=== PATIENT | female | born 1935 | race Caucasian/White ===

== ENCOUNTER 2016-11-10 06:25 | Day surgery (SDC) | payer MEDICARE, BC ==
[~2016-11-10 06:25] MED LIST: Lactated Ringers 1,000 ML IV SCH; ceFAZolin 1 GM in Premix Bag 1 BAG IV SCH
[2016-11-10] MEDS ORDERED: Propofol 200 MG/20 ML SDV ONE (07:15)
[2016-11-10] MEDS ORDERED: Lidocaine 2% 5 ML SDV ONE (07:15)
[2016-11-10] MEDS ORDERED: fentaNYL 100 MCG/2 ML SDV ONE ×2 (07:16→08:41)
[2016-11-10] MEDS ORDERED: Midazolam 1 MG/ML 2 ML SDV ONE (07:16)
[2016-11-10] MEDS ORDERED: Ketorolac 30 MG/ML SDV ONE (07:22)
[2016-11-10] MEDS ORDERED: Ondansetron 4 MG/2 ML SDV ONE (07:22)
[2016-11-10] MEDS ORDERED: Lidocaine 1% 50 ML MDV ONE (07:26)
--- NOTE | 2016-11-10 07:46 | PCM.PREANE ---
Preanesthetic Assessment - Procedure Proposed Procedure: Right knee scope with TKA follow-up - Anesthesia/Transfusion/Family Hx Anesthesia History: Prior Anesthesia Without Reaction Family History of Anesthesia Reaction: No Transfusion History: No Prior Transfusion(s) Intubation History: Unknown - Review of Systems General: No Symptoms Pulmonary: No Symptoms Cardiovascular: No Symptoms Gastrointestinal: No symptoms Neurological: Other (pain in right toe, pain in right knee) - Physical Assessment NPO Status Date: 11/09/16 NPO Status Time: 20:00 O2 Sat by Pulse Oximetry: 95 Respiratory Rate: 16 Vital Signs: Last Vital Signs Temp 99.1 F 11/10/16 07:07 Pulse 60 11/10/16 07:07 Resp 16 11/10/16 07:07 BP 113/54 L 11/10/16 07:07 Pulse Ox 95 11/10/16 07:07 Height: 5 ft 2 in Weight: 157 lb ASA Class: 3 Mental Status: Alert & Oriented x3 Airway Class: Mallampati = 1 Dentition: Reports: Dentures (upper) Thyro-Mental Finger Breadths: 3 Mouth Opening Finger Breadths: 3 ROM/Head Extension: Full Lungs: Clear to auscultation, Normal respiratory effort Cardiovascular: Regular Rate, Regular Rhythm, No Murmurs - Allergies Allergies/Adverse Reactions: Allergies Allergy/AdvReac Type Severity Reaction Status Date / Time 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 Nausea Uncoded 07/09/16 10:34 - Blood Blood Available: No Product(s) Available: None - Acknowledgements Anesthesia Type Planned: General Anesthesia (LMA vs OET) Pt an Appropriate Candidate for the Planned Anesthesia: Yes Alternatives and Risks of Anesthesia Discussed w Pt/Guardian: Yes Pt/Guardian Understands and Agrees with Anesthesia Plan: Yes Additional Comments: New request for right toe (ingrown nail?)- bring to surgeon attention PreAnesthesia Questionnaire HEENT History: Reports: Other (See Below) Other HEENT History: wears glasses, has top denture and lower partial Cardiovascular History: Reports: Hypertension Gastrointestinal History: Reports: None 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 History: Reports: None 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: Musculoskeletal History: Reports: Back Pain, Chronic, Osteoarthritis Neurological History: Reports: Vertigo - Past Surgical History Head Surgeries/Procedures: Reports: None HEENT Surgical History: Reports: Naso-Sinus Surgery GI Surgical History: Reports: Hernia, Inguinal Female Surgical History: Reports: Hysterectomy, Salpingo-Oophorectomy, Tubal Ligation Musculoskeletal Surgical History: Reports: Hip Replacement, Knee Replacement - SUBSTANCE USE Smoking Status *Q: Never Smoker Second Hand Smoke Exposure: No Recreational Drug Use History: No - HOME MEDS Home Medications: Home Meds Krill/[place]-3/Dha/Epa/Lipids [Krill Oil 300 mg Softgel] 1 tab PO DAILY 07/08/16 [History] amLODIPine [Norvasc] 5 mg PO DAILY 07/08/16 [History] Meclizine [Antivert] 25 mg PO ASDIRECTED PRN 07/09/16 [History] Calcium Carbonate [Calcium] 500 mg PO DAILY 11/06/16 [History] Vit A/C/E AC/Znox/Cupric Oxide [Eye Vitamin-Minerals Tablet] 1 tab PO DAILY [History] Acetaminophen [Tylenol] 325 mg PO DAILY PRN 11/10/16 [History] Naproxen Sodium [Aleve] 220 mg PO DAILY 11/10/16 [History] - CURRENT (IN HOUSE) MEDS Current Meds: Current Medications Hydrocodone Bitart/Acetaminophen (Lorenzo 325-5 Mg) 1 - 2 tab PO Q4H PRN PRN Reason: Pain Lactated Ringer's (Ringers, Lactated) 1,000 mls @ 100 mls/hr IV ASDIRECTED [facility] Last Admin: 11/10/16 06:55 Dose: 100 mls/hr Cefazolin Sodium/Dextrose 1 gm (/ Premix) 50 mls @ 100 mls/hr IV ONCALL [facility] Discontinued Medications Fentanyl (Sublimaze) Confirm Administered Dose 100 mcg .ROUTE .STK-MED ONE Stop: 11/10/16 07:17 Cefazolin Sodium/Dextrose (Ancef) Confirm Administered Dose 50 mls @ as directed .ROUTE .STK-MED ONE Stop: 11/10/16 07:24 Ketorolac Tromethamine (Toradol) Confirm Administered Dose 30 mg .ROUTE .STK- MED ONE Stop: 11/10/16 07:23 Lidocaine (Xylocaine-Mpf 2%) Confirm Administered Dose 10 ml .ROUTE .STK-MED ONE Stop: 11/10/16 07:16 Lidocaine HCl (Xylocaine 1%) Confirm Administered Dose 50 ml .ROUTE .STK-MED ONE Stop: 11/10/16 07:27 Midazolam HCl (Versed 1 Mg/Ml) Confirm Administered Dose 2 mg .ROUTE .STK-MED ONE Stop: 11/10/16 07:17 Ondansetron HCl (Zofran) Confirm Administered Dose 4 mg .ROUTE .STK-MED ONE Stop: 11/10/16 07:23 Propofol (Diprivan 20 Ml) Confirm Administered Dose 400 mg .ROUTE .STK-MED ONE Stop: 11/10/16 07:16
[2016-11-10] MEDS ORDERED: Acetaminophen/HYDROcodone 325-5 MG Tab PO PRN (08:00)
[2016-11-10] MEDS ORDERED: ePHEDrine 50 MG/ML SDV ONE (08:33)
[2016-11-10] MEDS ORDERED: fentaNYL 100 MCG/2 ML SDV IVPUSH PRN (08:51)
--- NOTE | 2016-11-10 09:14 | PCM.OPNOTE ---
- General Post-Op/Procedure Note Date of Surgery/Procedure: 11/10/16 Operative Procedure(s): 1. R knee arthroscopy with limited synovectomy. 2. Avulsion of R 2nd toenail plate, partial, simple Post-Op Diagnosis: 1. painful R TKA. 2. R 2nd toe ingrown toenail Anesthesia Technique: General LMA Primary Surgeon: Abi Grey Care Trainer: Jennifer Jimenez EBL in mLs: 5 Condition: Good Free Text/Narrative:: tt=26 min #[id number]
[2016-11-10] MEDS: ceFAZolin 1 GM in Premix Bag 1 BAG IV SCH ×2 (11:20→15:38)
--- NOTE | 2016-11-10 12:11 | PCM.POSTAN ---
POST ANESTHESIA ASSESSMENT - MENTAL STATUS Mental Status: alert, oriented - RESPIRATORY Respiratory Status: respiratory rate WNL, airway patent, O2 saturation stable - CARDIOVASCULAR CV Status: pulse rate WNL, blood pressure stable - GASTROINTESTINAL GI Status: no symptoms - PAIN Pain Score: 3 - POST OP HYDRATION Hydration Status: adequate & stable - OBSERVATIONS Free Text/Narrative:: To phase II.
--- NOTE | 2016-11-10 14:13 | OR ---
SURGEON: Abi Grey MD DATE OF PROCEDURE: 11/10/2016 PREOPERATIVE DIAGNOSES: 1. Painful right total knee arthroplasty. 2. Right second toe ingrown toenail. POSTOPERATIVE DIAGNOSES: 1. Painful right total knee arthroplasty. 2. Right second toe ingrown toenail. PROCEDURE: 1. Right knee arthroscopy with limited synovectomy. 2. Avulsion of right second toenail plate, partial, simple. 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 ESTIMATED BLOOD LOSS: 5 mL. TOURNIQUET TIME: 26 minutes. COMPLICATIONS: None. DVT PROPHYLAXIS: Not indicated. IMPLANTS USED: None. BRIEF HISTORY: Becki is an 81-year-old female, who has previously undergone a right total knee arthroplasty. She continued to have pain and subsequently underwent a polyethylene exchange. She had been doing fairly well, however, has noticed some pain catching when she flexes and rotates her knee. She had failed conservative treatment. Due to her lack of response to conservative treatment, I did recommend surgical intervention. The risks and goals of the procedure were discussed with the patient and were documented preoperatively. She agreed to proceed. Upon presentation today, she has noticed an ingrown toenail over the second toe on the right. The toenail does appear thickened. There was no surrounding redness or drainage. I recommended a partial avulsion of the second toenail plate. She agreed to proceed. DESCRIPTION OF PROCEDURE: The patient was properly identified and brought to the operating room. She was transferred from the OR cart and placed on the operating table in supine position. General anesthesia was administered. After adequate anesthesia was obtained, a well-padded tourniquet was applied to the right lower extremity. A time-out was performed to ensure correct site and procedure. Preoperative antibiotics were given. The surgical site had been marked preoperatively. A [place] elevator was placed under the affected portion of the nail plate. This was gently elevated from the surrounding skin. There did not appear to be significant erythema and no drainage was noted. A rongeur was then used to perform a partial avulsion of the second toe nail plate. The thickened nail was also trimmed with a rongeur. At the completion, the toe was covered in a bandage. The right lower extremity was then prepped in standard fashion using Betadine solution. It was then sterilely draped. An Esmarch was used to exsanguinate the right lower extremity and the tourniquet was inflated to 250 mmHg. A lateral portal arthrotomy was established. Blunt trocar and cannula were introduced into the suprapatellar pouch. Camera, inflow, and outflow were assembled. The suprapatellar pouch showed no significant scar tissue. A medial portal was then established and a shaver was introduced. The patella femoral joint was then inspected. She did have some overgrowth of tissue surrounding the patella and this was resected using the shaver. The patella appeared to track centrally down the trochlear groove. I then extended down the medial gutter. There was some scar tissue that appeared to be impinging within the joint. This was removed with the shaver. The prosthesis and polyethylene were probed and appeared to be stable. The notch showed no significant synovitis. There was some scar tissue anteriorly at along the inferior portion of the patella which was also resected. She did have a considerable amount of scar tissue along the lateral gutter as well. The camera was changed to the medial portal and the shaver was introduced. Limited synovectomy was completed along the lateral gutter. The knee was then taken through a range of motion. I did not appreciate any clicking or catching sensation. I also tried rotating and flexing the leg and no appreciable clicking was noted. Instruments were then removed from the knee. The portal sites were closed with 3-0 nylon. Lidocaine 1% was injected along the portal tract. Xeroform gauze was placed over the wound and a bulky dressing was applied. The tourniquet was then deflated. She was awakened from her anesthetic and transferred back to the operating room cart. She was brought to recovery room in stable condition. All needle and sponge counts were correct. DIOGO / MODL /[id number]
[2016-11-10 18:05] VITALS: BP 111/53
== END 2016-11-10 17:40 | disposition home or self-care (01) ==
LOC: MW.SDS 06:25 → MW.MS 09:52 → MW.SDS 17:40
PROVIDERS: ATTEND Orthopaedic Surgery
DX: T84.84XA Pain due to internal orthopedic prosthetic devices, implants and grafts, initial encounter (principal); M67.261 Synovial hypertrophy, not elsewhere classified, right lower leg; L60.0 Ingrowing nail; Z79.899 Other long term (current) drug therapy; Z96.651 Presence of right artificial knee joint; I10 Essential (primary) hypertension; E78.1 Pure hyperglyceridemia; E78.00 Pure hypercholesterolemia, unspecified; Z98.890 Other specified postprocedural states; Z90.710 Acquired absence of both cervix and uterus; Z96.649 Presence of unspecified artificial hip joint; Z98.51 Tubal ligation status; Z91.09 Other allergy status, other than to drugs and biological substances
CPT/HCPCS: 11730; 29875; 88304; J0690; J1885; J2405; J3010; J7120; 01400; J2250; J2704

== ENCOUNTER 2017-10-06 10:18 | Day surgery (SDC) | payer MEDICARE, BC ==
[~2017-10-06 10:18] MED LIST changes: +Lidocaine 2% 5 ML SDV ONE; +Propofol 200 MG/20 ML SDV ONE; +Sodium Chloride 0.9% 10 ML Syringe FLUSH PRN; +Sodium Chloride 0.9% 2.5 ML Syringe FLUSH PRN; -ceFAZolin 1 GM in Premix Bag 1 BAG IV SCH; +fentaNYL 100 MCG/2 ML SDV ONE
--- NOTE | 2017-10-06 11:09 | PCM.PREANE ---
Preanesthetic Assessment - Anesthesia/Transfusion/Family Hx Anesthesia History: Prior Anesthesia Without Reaction Family History of Anesthesia Reaction: No Transfusion History: No Prior Transfusion(s) Intubation History: Unknown - Review of Systems General: No Symptoms Pulmonary: No Symptoms Cardiovascular: No Symptoms Neurological: No Symptoms Other: Reports: None - Physical Assessment NPO Status Date: 10/06/17 O2 Sat by Pulse Oximetry: 96 Respiratory Rate: 16 Vital Signs: Last Vital Signs Temp 37.0 C 10/06/17 10:42 Pulse 60 10/06/17 10:42 Resp 16 10/06/17 10:42 BP 166/71 H 10/06/17 10:42 Pulse Ox 96 10/06/17 10:42 Height: 1.57 m Weight: 70.76 kg ASA Class: 2 - Allergies Allergies/Adverse Reactions: Allergies Allergy/AdvReac Type Severity Reaction Status Date / Time 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 Nausea Uncoded 10/01/17 11:50 - Anesthesia Plan Pre-Op Medication Ordered: None (PMH: htn, hyperlipidemia) - Acknowledgements Anesthesia Type Planned: MAC Pt an Appropriate Candidate for the Planned Anesthesia: Yes Alternatives and Risks of Anesthesia Discussed w Pt/Guardian: Yes Pt/Guardian Understands and Agrees with Anesthesia Plan: Yes PreAnesthesia Questionnaire HEENT History: Reports: Other (See Below) Other HEENT History: wears glasses, has top denture and lower partial Cardiovascular History: Reports: Hypertension Gastrointestinal History: Reports: None 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 History: Reports: None 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: Musculoskeletal History: Reports: Back Pain, Chronic, Osteoarthritis Neurological History: Reports: Vertigo - Past Surgical History Head Surgeries/Procedures: Reports: None HEENT Surgical History: Reports: Naso-Sinus Surgery GI Surgical History: Reports: Hernia, Inguinal Female Surgical History: Reports: Hysterectomy, Salpingo-Oophorectomy, Tubal Ligation Musculoskeletal Surgical History: Reports: Hip Replacement, Knee Replacement - SUBSTANCE USE Smoking Status *Q: Never Smoker Second Hand Smoke Exposure: No Recreational Drug Use History: No - HOME MEDS Home Medications: Home Meds Krill/[place]-3/Dha/Epa/Lipids [Krill Oil 300 mg Softgel] 1 tab PO DAILY 07/08/16 [History] amLODIPine [Norvasc] 5 mg PO DAILY 07/08/16 [History] Calcium Carbonate [Calcium] 500 mg PO DAILY 11/06/16 [History] - CURRENT (IN HOUSE) MEDS Current Meds: Current Medications Lactated Ringer's (Ringers, Lactated) 1,000 mls @ 125 mls/hr IV ASDIRECTED [facility] Last Admin: 10/06/17 10:44 Dose: 125 mls/hr Sodium Chloride (Saline Flush) 10 ml FLUSH ASDIRECTED PRN PRN Reason: Keep Vein Open Sodium Chloride (Saline Flush) 2.5 ml FLUSH ASDIRECTED PRN PRN Reason: Keep Vein Open Sodium Chloride (Saline Flush) 10 ml FLUSH ASDIRECTED PRN PRN Reason: Keep Vein Open Sodium Chloride (Saline Flush) 2.5 ml FLUSH ASDIRECTED PRN PRN Reason: Keep Vein Open Discontinued Medications Fentanyl (Sublimaze) Confirm Administered Dose 100 mcg .ROUTE .STK-MED ONE Stop: 10/06/17 08:20 Lidocaine (Xylocaine-Mpf 2%) Confirm Administered Dose 5 ml .ROUTE .STK-MED ONE Stop: 10/06/17 08:20 Propofol (Diprivan 20 Ml) Confirm Administered Dose 400 mg .ROUTE .STK-MED ONE Stop: 10/06/17 08:20
[2017-10-06 13:39] VITALS: BP 142/79
--- NOTE | 2017-10-06 14:03 | PCM.OPNOTE ---
- General Post-Op/Procedure Note Date of Surgery/Procedure: 10/06/17 Operative Procedure(s): Incomplete colonoscopy Findings: Solid stool in colon. Tortuous sigmoid colon full of diverticuli. Pre Op Diagnosis: Diverticulosis, change in bowel habits Post-Op Diagnosis: Poor prep, diverticulosis Anesthesia Technique: MAC Primary Surgeon: Marcie Cleveland Condition: Good Free Text/Narrative:: Intake & Output 10/05/17 10/06/17 10/06/17 22:59 06:59 14:59 Intake Total 1000 Balance 1000
--- NOTE | 2017-10-06 14:10 | PCM.POSTAN ---
POST ANESTHESIA ASSESSMENT - MENTAL STATUS Mental Status: Alert, Oriented - RESPIRATORY Respiratory Status: Respiratory Rate WNL, Airway Patent, O2 Saturation Stable - CARDIOVASCULAR CV Status: Pulse Rate WNL, Blood Pressure Stable - GASTROINTESTINAL GI Status: No Symptoms - PAIN Free Text/Narrative:: uncomfortable from cramping. Poor prep, scheduled for additional laxitives and BE tomorrow. - POST OP HYDRATION Hydration Status: Adequate & Stable
--- NOTE | 2017-10-06 14:10 | PCM48HPAN ---
Post Anesthesia Note - EVALUATION WITHIN 48HRS OF ANESTHETIC Vital Signs in Normal Range: Yes Patient Participated in Evaluation: Yes Respiratory Function Stable: Yes Airway Patent: Yes Cardiovascular Function Stable: Yes Hydration Status Stable: Yes Pain Control Satisfactory: Yes Nausea and Vomiting Control Satisfactory: Yes Mental Status Recovered: Yes Resp Rate: 10
--- NOTE | 2017-10-07 13:56 | OR ---
SURGEON: SUDHAKAR HUTTON MD DATE OF PROCEDURE: 10/06/2017 PREOPERATIVE DIAGNOSIS: Change in bowel habits. POSTOPERATIVE DIAGNOSIS: Incomplete colonoscopy. PROCEDURE PERFORMED: Colonoscopy, incomplete. ANESTHESIA: MAC. INSTRUMENT USED: Olympus colonoscope. EXTENT OF EXAM: 20 cm into the colon preparation, poor with solid stool in the colon. LIMITATIONS: Tortuous sigmoid colon with multiple diverticula. COMPLICATIONS: None. INDICATIONS: The patient is an 82-year-old female, who came to my clinic complaining of increasing constipation since a knee replacement earlier this year. She has tried [id number] laxatives with mixed results. CT of the abdomen and pelvis was performed that showed mild thickening at the hepatic flexure, they may have been due to decompression. I explained to the patient that performing a diagnostic colonoscopy would be helpful in determining if this thickened area was secondary to the physiology of the colon or a mass. We discussed the procedure, expected perioperative course, and risks including bleeding, infection, or perforation. The patient verbalized understanding and wishes to proceed. PROCEDURE IN DETAIL: The patient was brought to the endoscopy suite and placed in the left lateral decubitus position. A time-out was completed verifying the patient's name, age, date of , allergies, and procedure to be performed. Monitored anesthesia care was induced and continuous oxygen was provided via nasal cannula throughout the procedure. After adequate sedation was achieved, a digital rectal exam was performed. Upon digital rectal exam, I could feel solid stool in the colon. A well lubricated colonoscope was inserted into the rectum. I immediately encountered chunks of solid stool. I irrigated the colon copiously and was able to clear out some of the stool. The scope was slowly advanced forward. The patient had a very tortuous sigmoid colon containing multiple diverticula. I attempted to advance the scope, but due to the poor prep and tortuosity of the colon, I could not safely advance the scope. I tried multiple position changes and large amount of irrigation of the colon, but was unsuccessful. The case was then canceled. The scope was then removed. The remainder of the colon appeared normal. The scope was retroflexed within the rectum and a photograph was taken of the anal canal. This appeared normal. The scope was removed. The patient was transferred to the PACU in stable condition. ENDOSCOPIC DIAGNOSIS: Incomplete colonoscopy. RECOMMENDATIONS: The patient will undergo a barium enema tomorrow. I will send her home with magnesium citrate to complete her colon prep. JESSICA / SHANNON /[id number]
== END 2017-10-06 15:30 | disposition home or self-care (01) ==
LOC: MW.SDS 10:18
PROVIDERS: ATTEND Surgery
DX: K59.09 Other constipation (principal); K57.30 Diverticulosis of large intestine without perforation or abscess without bleeding; K56.2 Volvulus; Z80.0 Family history of malignant neoplasm of digestive organs; I10 Essential (primary) hypertension; E78.00 Pure hypercholesterolemia, unspecified; E78.1 Pure hyperglyceridemia; Z79.899 Other long term (current) drug therapy; Z91.048 Other nonmedicinal substance allergy status
CPT/HCPCS: 45330; J3010; J7120; J2704

== ENCOUNTER 2018-10-20 09:32 | Emergency (ER) | payer MEDICARE, BC ==
[2018-10-20 09:37] VITALS: BP 145/68
--- NOTE | 2018-10-20 10:10 | EDM.PDOC ---
ED HPI GENERAL MEDICAL PROBLEM - General Chief Complaint: Lower Extremity Injury/Pain Stated Complaint: HIP PAIN Time Seen by Provider: 10/20/18 10:06 Source of Information: Reports: Patient History Limitations: Reports: No Limitations - History of Present Illness INITIAL COMMENTS - FREE TEXT/NARRATIVE: HISTORY AND PHYSICAL: History of present illness: Patient is an 83-year-old female who presents to the emergency room today with complaints of right hip pain and neck pain. She reports that she had a right total hip replacement on 09/28/18 at [facility] in [place]. She has been in [facility] for physical therapy and rehabilitation. She normally does live at home with her . She has been taking hydrocodone, Tylenol and gabapentin with somewhat relief. States this morning she woke up with increased pain that was not alleviated by her pain medication. Patient reports that her neck pain is chronic. Denies any numbness, tingling, or saddle paresthesia. She denies any falls, trauma or injury. Patient denies any fever, chills, headache, change in vision, syncope or near syncope. Denies any chest pain, back pain, shortness of breath or cough. Denies any abdominal pain, nausea, vomiting, diarrhea, constipation or dysuria. Has not noted any blood in urine or stool. Patient has been eating and drinking appropriately. Review of systems: As per history of present illness and below otherwise all systems reviewed and negative. Past medical history: As per history of present illness and as reviewed below otherwise noncontributory. Surgical history: As per history of present illness and as reviewed below otherwise noncontributory. Social history: See social history for further information Family history: As per history of present illness and as reviewed below otherwise noncontributory. Physical exam: General: Well-developed and well-nourished 83-year-old female. Alert and oriented. Nontoxic appearing and in no acute distress. HEENT: Atraumatic, normocephalic, pupils equal and reactive bilaterally, negative for conjunctival pallor or scleral icterus, mucous membranes moist, nontender, trachea midline. No drooling or trismus noted. No meningeal signs. No hot potato voice noted. Lungs: Clear to auscultation, breath sounds equal bilaterally, chest nontender. Heart: S1S2, regular rate and rhythm without overt murmur Abdomen: Soft, nondistended, nontender. Negative for masses or hepatosplenomegaly. Negative for costovertebral tenderness. Pelvis: Stable nontender. 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: Deferred. Rectal: Deferred. Skin: Lateral incision noted to right hip. Skin around it shows no sign of infection (erythema, soft tissue swelling or tenderness). Otherwise skin is intact, warm, dry. No lesions or rashes noted. Extremities: See skin. Atraumatic, moves all extremities per self without difficulty or deficits, negative for cords or calf pain. Strong pedal pulses bilaterally. Ambulates with standby assistance. Neurovascular unremarkable. Neuro: Awake, alert, oriented. Cranial nerves II through XII unremarkable. Cerebellum unremarkable. Motor and sensory unremarkable throughout. Exam nonfocal. Notes: Patient took Hydrocodone 7.5mg, Gabapentin, and Tylenol this morning around 0830. She does appear drowsy; but easily arousable. Post operative site appears free of infection. Patient was ambulatory with assistance to the bedside commode to void. Lab work is unremarkable at this time. CT shows extensive extraluminal, retroperitoneal gas. The etiology of this finding is indeterminate. Differential diagnosis includes perforation of a retroperitoneal portion of the colon or duodenum. Surgical consultation is advised. Gas is also present about the posterior mediastinum adjacent to the distal esophagus. If the patient has been vomiting recently, consider a single phase, water-soluble esophagram. No drainable fluid collection or obstruction. Normal caliber appendix. Distended gallbladder. Gallstones. No right upper quadrant inflammatory changes. 1215: Dr Rowe was consulted on this patient. He is here to evaluate patient. Requesting patient be transferred. 1220: Dr. Gabriel Lucero at [facility] was consulted on this patient. He is agreeable to accepting this patient. Family was made aware. Vital signs remain stable. IV Zosyn and Flagyl being given at this time. Diagnostics: CBC, CMP, UA, CT abd/pelvis Therapeutics: Toradol IM, Zosyn, Flagyl Impression: Colon perforation Right Hip Pain; post-operative Plan: To [facility] via ground EMS Definitive disposition and diagnosis as appropriate pending reevaluation and review of above. 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 Allergy Nausea Uncoded 10/20/18 09:37 Home Meds: Home Meds Acetaminophen [Tylenol Arthritis] 650 mg PO Q4H PRN 10/20/18 [History] Acetaminophen [Tylenol] 650 mg PO Q4H PRN 10/20/18 [History] Acetaminophen/HYDROcodone [[place] 325-7.5 MG] 1 tab PO Q4H PRN 10/20/18 [History] Bisacodyl [Dulcolax] 1 supp RECTAL DAILY PRN 10/20/18 [History] Bisacodyl [Dulcolax] 10 mg RC Q24H PRN 10/20/18 [History] Calcium Carbonate [Calcium] 500 mg PO DAILY 10/20/18 [History] Calcium Carbonate [Tums] 500 mg PO DAILY PRN 10/20/18 [History] Celecoxib [CeleBREX] 200 mg PO DAILY 10/20/18 [History] Celecoxib [CeleBREX] 200 mg PO DAILY 10/20/18 [History] Cyanocobalamin (Vitamin B-12) [B-12] 1,000 mcg PO DAILY 10/20/18 [History] Cyanocobalamin (Vitamin B-12) [B-12] 1,000 mcg PO DAILY 10/20/18 [History] Gabapentin [Neurontin] 200 mg PO BID 10/20/18 [History] Gabapentin [Neurontin] 200 mg PO BID 10/20/18 [History] Hydrocodone/Acetaminophen [Hydrocodon-Acetaminoph 7.5-325] 1 each PO Q4H PRN [History] Magnesium Hydroxide [Milk of Magnesia] 30 ml PO DAILY PRN 10/20/18 [History] Magnesium Hydroxide [Milk of Magnesia] 30 ml PO Q24H PRN 10/20/18 [History] Memantine HCl 5 mg PO DAILY 10/20/18 [History] Memantine HCl 5 mg PO DAILY 10/20/18 [History] Polyethylene Glycol 3350 [MiraLAX] 1 dose PO BEDTIME 10/20/18 [History] Polyethylene Glycol 3350 [MiraLAX] 17 gm PO BEDTIME PRN 10/20/18 [History] Prevagen Extra Strength 20 mg PO DAILY 10/20/18 [History] Past Medical History HEENT History: Reports: Other (See Below) Other HEENT History: wears glasses, has top denture and lower partial Cardiovascular History: Reports: Hypertension Gastrointestinal History: Reports: None, GERD 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 History: Reports: None 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: Musculoskeletal History: Reports: Back Pain, Chronic, Osteoarthritis Neurological History: Reports: Vertigo - Past Surgical History Head Surgeries/Procedures: Reports: None HEENT Surgical History: Reports: Naso-Sinus Surgery GI Surgical History: Reports: Hernia, Inguinal Female Surgical History: Reports: Hysterectomy, Salpingo-Oophorectomy, Tubal Ligation Musculoskeletal Surgical History: Reports: Hip Replacement, Knee Replacement Social & Family History - Family History Family Medical History: Unobtainable - Tobacco Use Smoking Status *Q: Never Smoker - Caffeine Use Caffeine Use: Reports: Coffee - Recreational Drug Use Recreational Drug Use: No Review of Systems - Review of Systems Review Of Systems: ROS reveals no pertinent complaints other than HPI. ED EXAM, GENERAL - Physical Exam Exam: See Below (See dictation) Course - Vital Signs Last Recorded V/S: Last Vital Signs Temp 97.4 F 10/20/18 09:33 Pulse 77 10/20/18 09:33 Resp 24 H 10/20/18 09:33 BP 145/68 H 10/20/18 09:33 Pulse Ox 97 10/20/18 09:33 - Orders/Labs/Meds Orders: Active Orders 24 hr Category Date Time Status Notify Provider Consults [RC] ASDIRECTED Care 10/20/18 12:19 Active Consult to Physician [CONS] Stat Cons 10/20/18 12:19 Active metroNIDAZOLE/Normal Saline [Flagyl 500 MG in NS 100 ML Med 10/20/18 12:16 Active ] 500 mg Premix Bag 1 bag IV ONETIME Medication Orders Metronidazole 500 mg/ Premix 100 mls @ 100 mls/hr IV ONETIME ONE Stop: 10/20/18 13:15 Labs: Laboratory Tests 10/20/18 10/20/18 10/20/18 Range/Units 10:48 10:48 11:17 WBC 5.83 (4.0-11.0) K/uL RBC 4.18 L (4.30-5.90) M/uL Hgb 12.4 (12.0-16.0) g/dL Hct 38.8 (36.0-46.0) % MCV 92.8 (80.0-98.0) fL MCH 29.7 (27.0-32.0) pg MCHC 32.0 (31.0-37.0) g/dL RDW Std Deviation 53.6 (28.0-62.0) fl RDW Coeff of Leonardo 16 H (11.0-15.0) % Plt Count 316 (150-400) K/uL MPV 9.70 (7.40-12.00) fL Neut % (Auto) 47.0 L (48.0-80.0) % Lymph % (Auto) 38.3 (16.0-40.0) % Aiken % (Auto) 10.1 (0.0-15.0) % Eos % (Auto) 3.6 (0.0-7.0) % Baso % (Auto) 1.0 (0.0-1.5) % Neut # (Auto) 2.7 (1.4-5.7) K/uL Lymph # (Auto) 2.2 (0.6-2.4) K/uL Aiken # (Auto) 0.6 (0.0-0.8) K/uL Eos # (Auto) 0.2 (0.0-0.7) K/uL Baso # (Auto) 0.1 (0.0-0.1) K/uL Nucleated RBC % 0.0 /100WBC Nucleated RBCs # 0 K/uL Sodium 142 (136-145) mmol/L Potassium 3.7 (3.5-5.1) mmol/L Chloride 108 H (98-107) mmol/L Carbon Dioxide 24.7 (21.0-32.0) mmol/L BUN 17 (7.0-18.0) mg/dL Creatinine 0.9 (0.6-1.0) mg/dL Est Cr Clr Drug Dosing 40.90 mL/min Estimated GFR (MDRD) 59.8 ml/min Glucose 94 (74-106) mg/dL Calcium 8.9 (8.5-10.1) mg/dL Total Bilirubin 0.4 (0.2-1.0) mg/dL AST 17 (15-37) IU/L ALT 16 (14-63) IU/L Alkaline Phosphatase 137 H (46-116) U/L Total Protein 6.0 L (6.4-8.2) g/dL Albumin 3.1 L (3.4-5.0) g/dL Globulin 2.9 (2.6-4.0) g/dL Albumin/Globulin Ratio 1.1 (0.9-1.6) Urine Color YELLOW Urine Appearance CLEAR Urine pH 5.5 (5.0-8.0) Ur Specific [place] <= 1.005 (1.001-1.035) Urine Protein NEGATIVE (NEGATIVE) mg/dL Urine Glucose (UA) NEGATIVE (NEGATIVE) mg/dL Urine Ketones NEGATIVE (NEGATIVE) mg/dL Urine Occult Blood NEGATIVE (NEGATIVE) Urine Nitrite NEGATIVE (NEGATIVE) Urine Bilirubin NEGATIVE (NEGATIVE) Urine Urobilinogen 0.2 (<2.0) EU/dL Ur Leukocyte Esterase NEGATIVE (NEGATIVE) Meds: Medications Generic Name Dose Route Start Last Admin Trade Name Freq PRN Reason Stop Dose Admin Metronidazole 500 mg/ Premix 100 mls @ 100 mls/hr 10/20/18 12:16 IV 10/20/18 13:15 ONETIME ONE Discontinued Medications Generic Name Dose Route Start Last Admin Trade Name Freq PRN Reason Stop Dose Admin Piperacillin Sod/Tazobactam 50 mls @ 100 mls/hr 10/20/18 12:16 10/20/18 12:43 Sod 3.375 gm/ Sodium Chloride IV 10/20/18 12:45 100 mls/hr ONETIME ONE Administration Ketorolac Tromethamine 60 mg 10/20/18 10:15 10/20/18 10:19 Toradol IM 10/20/18 10:16 60 mg ONETIME ONE Administration Departure - Departure Time of Disposition: 12:32 Disposition: DC/Tfer to Acute Hospital 02 Clinical Impression: Colon perforation, Acute postoperative pain of right hip - Discharge Information Referrals: Jose Watkins MD [Primary Care Provider] - Forms: ED Department Discharge - My Orders Last 24 Hours: My Active Orders 10/20/18 12:16 metroNIDAZOLE/Normal Saline [Flagyl 500 MG in NS 100 ML] 500 mg Premix Bag 1 bag IV ONETIME 10/20/18 12:19 Notify Provider Consults [RC] ASDIRECTED Consult to Physician [CONS] Stat - Assessment/Plan Last 24 Hours: My Active Orders 10/20/18 12:16 metroNIDAZOLE/Normal Saline [Flagyl 500 MG in NS 100 ML] 500 mg Premix Bag 1 bag IV ONETIME 10/20/18 12:19 Notify Provider Consults [RC] ASDIRECTED Consult to Physician [CONS] Stat
[2018-10-20] MEDS ORDERED: Ketorolac 60 MG/2 ML SDV IM ONE (10:15)
--- NOTE | 2018-10-20 12:13 | CT ---
INDICATION: PAIN HISTORY: Abdominal pain. COMPARISON: CT of the abdomen and pelvis 09/29/2017. TECHNIQUE: CT of the abdomen and pelvis. No intravenous contrast. Coronal/sagittal reconstruction images. FINDINGS: Lung bases: Coronary artery calcifications. No pleural or pericardial effusion. The lung bases demonstrate gas present within the posterior mediastinum adjacent to the distal esophagus. This is seen best on image 44 of series 201. No basilar pneumothorax. Abdomen/pelvis: The hepatic morphology is normal. There is a distended gallbladder, with gallstones. The gallbladder measures up to 9.7 cm in dimension. No solid hepatic mass. No perihepatic ascites. No adrenal mass. The spleen size is normal. There is no hydronephrosis. There are no perinephric inflammatory changes. There is no drainable perinephric fluid collection. There is no pancreatic mass or pancreatic duct dilation. No glandular atrophy. Bilateral hip arthroplasties. This creates streak artifact in the pelvis. There is diverticulosis of the colon, with gas present within the retroperitoneum. There is no drainable fluid collection. There is no pneumatosis. No abdominal aortic aneurysm. No adenopathy is seen by size criteria in the pelvis, gastrohepatic ligament, or small bowel mesentery. Gas is present throughout the retroperitoneal structures of the left upper quadrant, including the anterior para renal space. The bone windows demonstrate no suspicious lytic or blastic bone lesions. There are significant degenerative changes at the apophyseal joints in the lumbar spine. Minimal anterolisthesis of L4 on L5. IMPRESSION: 1. Extensive extraluminal, retroperitoneal gas. The etiology of this finding is indeterminate. Differential diagnosis includes perforation of a retroperitoneal portion of the colon or duodenum. Surgical consultation is advised. 2. Gas is also present about the posterior mediastinum adjacent to the distal esophagus. If the patient has been vomiting recently, consider a single phase, water-soluble esophagram. 3. No drainable fluid collection or obstruction. 4. Normal caliber appendix. 5. Distended gallbladder. Gallstones. No right upper quadrant inflammatory changes. 6. Report called to Dr. Higuera of the referring clinical service, 10/20/2018, 12:10 p.m. Dictated by Santosh Yi MD @ 10/20/2018 12:11:11 PM Please note that all CT scans at this facility use dose modulation, iterative reconstruction, and/or weight-based dosing when appropriate to reduce radiation dose to as low as reasonably achievable. Dictated by: Santosh Yi MD @ 10/20/2018 12:11:25 (Electronically Signed)
[2018-10-20] MEDS ORDERED: Piperacillin/Tazobactam 3.375 GM in Sodium Chloride 0.9% 50 ML IV ONE (12:16)
[2018-10-20] MEDS ORDERED: metroNIDAZOLE/Normal Saline 500 MG in Premix Bag 1 BAG IV ONE (12:16)
--- NOTE | 2018-10-20 16:33 | PCM.SN ---
- Free Text/Narrative Note: pt seen, chart reviewed; cx dictated; [id number]
--- NOTE | 2018-10-21 09:32 | CONS ---
DATE OF CONSULTATION: 10/20/2018 DATE OF : 1935 PRIMARY CARE PHYSICIAN: Jose Watkins M.D. Consult from Anshul Higuera NP, emergency room provider. CONCERNING QUESTION: Free air in the abdomen. HISTORY OF PRESENT ILLNESS: The patient is 83 years old lady and is about 3 weeks from total hip replacement at the [facility] in [place]. Postop, the patient is doing physical therapy in [facility] at [facility] and noted to have increased pain, not relieved by pain medication, and then sought help in the emergency room. An emergency room CAT scan shows free air and also mediastinum air, and Surgery was then consulted. Currently, the patient is resting on a stretcher and does not seem to show a lot of interest in communication. Eyes closed, resting. Occasionally opened eyes and gave answer to the doctor. The patient does not seem to be hurting a lot, but at the same time, she is really not interested to talk. Many family members are around bedside. She is not able to give any more history about why she is in the hospital, less about why she is doing physical therapy in [facility]. She knows she is in the hospital, but she does not understand why. She denied pain for the time-being. She said her appetite is pretty good and has absolutely no idea when she started to experience pain. At some point, she denied having any abdominal pain. PAST MEDICAL HISTORY: Significant for essential hypertension, bladder spasm, coccydynia, foot pain, low back pain, and knee pain. PAST SURGICAL HISTORY: Total knee replacement on the right side and recently total hip 3 weeks ago. Denied alcohol use. ALLERGIES: Please refer to nursing for details. MEDICATIONS: Please refer to nursing for details. FAMILY HISTORY: Noncontributory. SOCIAL HISTORY: As dictated above. PHYSICAL EXAMINATION: GENERAL: Very frail, elderly, cachectic appearance, and resting on the stretcher. Occasionally gives answer, but has absolutely no idea why she is in the hospital and how long she has not been feeling well. HEENT: Normocephalic and atraumatic. Sclerae are anicteric. LUNGS: With rales. With bilateral breath sounds. No subcu crepitus. Trachea is midline. HEART: Regular rate and rhythm. ABDOMEN: Soft and nondistended. No pulsating tender midline abdominal structure. Regular bowel sounds in all 4 quadrants. Exquisite tenderness in the epigastrium, even slight palpation causes her pain. No surgical scar in the abdomen. VITAL SIGNS: On examination, temperature 97, heart rate is 77, blood pressure is 145/98, respiratory rate is 24, and oxygen at 97%. LABORATORY VALUE: Upon consultation, white count is 5,800, and H and H are 12 and 39, platelets are 316,000. Coag is 0.98. Sodium 142, potassium 3.7, BUN is 17, creatinine is 0.9, total bilirubin is 0.4. AST and ALT are 17 and 16. Alkaline phosphatase is 137. Urine has no signs or symptoms of UTI. CAT scan reports extensive, extraluminal, retroperitoneal gas, etiology unknown, possible perforation of the retroperitoneal portion of colon or duodenum. Also, gas on posterior mediastinum adjacent to distal esophagus, distended gallbladder, gallstones. IMPRESSION: Perforated viscus with inflammation and fuzziness around the distal esophagus and free air, likely either perforated duodenum or perforated esophagus. With the patient's comorbidity at age 83, the patient would need to be transferred to a tertiary care center or academic center, and also the perforated area in gastroduodenal area, if perforation is located, also makes surgery to be a bigger case in critical care facility, as we are, and transfer to higher facility would be in the best interest of the patient. Plan has been recommended to the ER provider and talked to the family. All are in agreement. Transferred to [facility] in [place]. As always, thank you for the kind referral. TOD / SHANNON /[id number]
== END 2018-10-20 14:25 ==
LOC: MW.ED 09:32
DX: G89.18 Other acute postprocedural pain (principal); M25.551 Pain in right hip; K63.1 Perforation of intestine (nontraumatic); Z79.899 Other long term (current) drug therapy; Z96.641 Presence of right artificial hip joint
CPT/HCPCS: 36415; 74176; 80053; 81003; 85025; 96365; 96367; 96372; 99285; A4217; J1885; J2543; J3490; J7050

== ENCOUNTER 2019-01-18 14:01 | Observation (INO) | payer MEDICARE, BC ==
[2019-01-18] MEDS ORDERED: Sodium Chloride 0.9% 1,000 ML IV ONE (14:11)
[2019-01-18] MEDS ORDERED: Ketorolac 30 MG/ML SDV IVPUSH ONE (14:54)
[2019-01-18 14:57] LABS: CHLORIDE,CL 106 mmol/L (98-107); SODIUM,NA 141 mmol/L (136-145)
--- NOTE | 2019-01-18 15:12 | EDM.PDOC ---
ED HPI GENERAL MEDICAL PROBLEM - General Chief Complaint: Gastrointestinal Problem Stated Complaint: WEAKNESS Time Seen by Provider: 01/18/19 14:26 Source of Information: Reports: Patient History Limitations: Reports: No Limitations - History of Present Illness INITIAL COMMENTS - FREE TEXT/NARRATIVE: HISTORY AND PHYSICAL: History of present illness: Patient is an 83-year-old female who presents to the emergency room today with complaints of dizziness and headache. Patient had taken a nap earlier this afternoon in a recliner. When she woke up she put the feet the recliner down and sat up and became very dizzy. States she had the sensation of near syncope. She currently complains of dizziness and generalized headache associated with nausea. Patient denies any fever, chills, change in vision, syncope or recent head injury/trauma. Denies any chest pain, back pain, shortness of breath or cough. Denies any abdominal pain, vomiting, diarrhea, constipation or dysuria. Has not noted any blood in urine or stool. Patient has been eating and drinking appropriately. Review of systems: As per history of present illness and below otherwise all systems reviewed and negative. Past medical history: As per history of present illness and as reviewed below otherwise noncontributory. Surgical history: As per history of present illness and as reviewed below otherwise noncontributory. Social history: See social history for further information Family history: As per history of present illness and as reviewed below otherwise noncontributory. Physical exam: General: Well-developed and well-nourished 83-year-old female. Alert and oriented. Nontoxic appearing and in no acute distress. HEENT: Atraumatic, normocephalic, pupils equal and reactive bilaterally, negative for conjunctival pallor or scleral icterus, mucous membranes moist, TMs normal bilaterally, throat clear, neck supple, nontender, trachea midline. No drooling or trismus noted. No meningeal signs. No hot potato voice noted. Lungs: Clear to auscultation, breath sounds equal bilaterally, chest nontender. Heart: S1S2, regular rate and rhythm without overt murmur Abdomen: Soft, nondistended, nontender. Negative for masses or hepatosplenomegaly. Negative for costovertebral tenderness. Pelvis: Stable nontender. 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: Deferred. Rectal: Deferred. Skin: Intact, warm, dry. No lesions or rashes noted. Extremities: Atraumatic, moves all extremities per self without difficulty or deficits, negative for cords or calf pain. Neurovascular unremarkable. Neuro: Awake, alert, oriented. Cranial nerves II through XII unremarkable. Cerebellum unremarkable. Motor and sensory unremarkable throughout. Exam nonfocal. Notes: Lab work is unremarkable. No evidence of an acute intracranial hemorrhage, mass effect or loss of andujar-white differentiation. A small right periventricular white matter hypodensity could be related to mild chronic small vessel ischemic change. Patient has no deficits. This information was shared with the hospitalist, Dr Randhawa. We'll keep the patient for observation admission with telemetry patient is aware and agreeable to plan of care. Diagnostics: CBC, CMP, UA, Troponin, EKG, Head CT Therapeutics: IV fluids, Toradol Impression: Near Syncope Dizziness Headache Plan: Observation admission to Med/Surg Definitive disposition and diagnosis as appropriate pending reevaluation and review of above. 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 Uncoded 10/20/18 09:37 Home Meds: Home Meds Aspirin 81 mg PO DAILY 01/18/19 [History] Calcium Carbonate [Calcium] 500 mg PO DAILY 01/18/19 [History] Cyanocobalamin (Vitamin B-12) [B-12] 1,000 mcg PO ASDIRECTED 01/18/19 [History] Hydrocodone/Acetaminophen [Hydrocodon-Acetaminoph 7.5-325] 1 each PO DAILY 01/18 [History] Krill Oil 350 mg PO ASDIRECTED 01/18/19 [History] Krill/[place]-3/Dha/Epa/Lipids [Krill Oil 300 mg Softgel] 1 tab PO ASDIRECTED [History] Memantine HCl [Namenda] 5 mg PO DAILY 01/18/19 [History] amLODIPine [Norvasc] 5 mg PO DAILY 01/18/19 [History] Past Medical History HEENT History: Reports: Other (See Below) Other HEENT History: wears glasses, has top denture and lower partial Cardiovascular History: Reports: Hypertension Gastrointestinal History: Reports: GERD 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 History: Reports: None 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: Musculoskeletal History: Reports: Arthritis, Back Pain, Chronic, Osteoarthritis Neurological History: Reports: Vertigo - Infectious Disease History Infectious Disease History: Reports: None - Past Surgical History Head Surgeries/Procedures: Reports: None HEENT Surgical History: Reports: Naso-Sinus Surgery GI Surgical History: Reports: Hernia, Inguinal Female Surgical History: Reports: Hysterectomy, Salpingo-Oophorectomy, Tubal Ligation Musculoskeletal Surgical History: Reports: Hip Replacement, Knee Replacement Social & Family History - Family History Family Medical History: Unobtainable - Tobacco Use Smoking Status *Q: Never Smoker - Caffeine Use Caffeine Use: Reports: Coffee - Recreational Drug Use Recreational Drug Use: No ED ROS GENERAL - Review of Systems Review Of Systems: ROS reveals no pertinent complaints other than HPI. ED EXAM, GENERAL - Physical Exam Exam: See Below (See dictation) Course - Vital Signs Last Recorded V/S: Last Vital Signs Temp 97.0 F 01/18/19 14:02 Pulse 69 01/18/19 15:15 Resp 12 01/18/19 15:15 BP 143/47 H 01/18/19 15:15 Pulse Ox 96 01/18/19 15:15 Orthostatic Blood Pressure [ 151/74 Standing] Orthostatic Blood Pressure [ 138/76 Sitting] Orthostatic Blood Pressure [ 153/64 Supine] - Orders/Labs/Meds Orders: Active Orders 24 hr Category Date Time Status Admission Status [Patient Status] [ADT] Stat ADT 01/18/19 15:50 Active EKG Documentation Completion [RC] STAT Care 01/18/19 14:11 Active Orthostatic Vital Signs [RC] ASDIRECTED Care 01/18/19 14:11 Active Sodium Chloride 0.9% [Normal Saline] 1,000 ml Med 01/18/19 14:11 Active IV STAT Medication Orders Sodium Chloride (Normal Saline) 1,000 mls @ 125 mls/hr IV STAT ONE Stop: 01/18/19 22:10 Last Admin: 01/18/19 14:22 Dose: 125 mls/hr Labs: Laboratory Tests 01/18/19 01/18/19 01/18/19 Range/Units 14:00 14:00 14:10 WBC 8.11 (4.0-11.0) K/uL RBC 4.68 (4.30-5.90) M/uL Hgb 14.5 (12.0-16.0) g/dL Hct 43.4 (36.0-46.0) % MCV 92.7 (80.0-98.0) fL MCH 31.0 (27.0-32.0) pg MCHC 33.4 (31.0-37.0) g/dL RDW Std Deviation 46.0 (28.0-62.0) fl RDW Coeff of Leonardo 14 (11.0-15.0) % Plt Count 204 (150-400) K/uL MPV 10.70 (7.40-12.00) fL Neut % (Auto) 73.3 (48.0-80.0) % Lymph % (Auto) 19.4 (16.0-40.0) % [place] % (Auto) 6.2 (0.0-15.0) % Eos % (Auto) 0.7 (0.0-7.0) % Baso % (Auto) 0.4 (0.0-1.5) % Neut # (Auto) 6.0 H (1.4-5.7) K/uL Lymph # (Auto) 1.6 (0.6-2.4) K/uL [place] # (Auto) 0.5 (0.0-0.8) K/uL Eos # (Auto) 0.1 (0.0-0.7) K/uL Baso # (Auto) 0.0 (0.0-0.1) K/uL Nucleated RBC % 0.0 /100WBC Nucleated RBCs # 0 K/uL Sodium 141 (136-145) mmol/L Potassium 3.9 (3.5-5.1) mmol/L Chloride 106 (98-107) mmol/L Carbon Dioxide 23.4 (21.0-32.0) mmol/L BUN 12 (7.0-18.0) mg/dL Creatinine 0.8 (0.6-1.0) mg/dL Est Cr Clr Drug Dosing 47.95 mL/min Estimated GFR (MDRD) > 60.0 ml/min Glucose 131 H (74-106) mg/dL Calcium 9.4 (8.5-10.1) mg/dL Total Bilirubin 0.6 (0.2-1.0) mg/dL AST 22 (15-37) IU/L ALT 15 (14-63) IU/L Alkaline Phosphatase 105 (46-116) U/L Troponin I < 0.050 (0.000-0.056) ng/mL Total Protein 6.4 (6.4-8.2) g/dL Albumin 3.7 (3.4-5.0) g/dL Globulin 2.7 (2.6-4.0) g/dL Albumin/Globulin Ratio 1.4 (0.9-1.6) Urine Color YELLOW Urine Appearance CLEAR Urine pH 8.0 (5.0-8.0) Ur Specific [place] 1.020 (1.001-1.035) Urine Protein NEGATIVE (NEGATIVE) mg/dL Urine Glucose (UA) NEGATIVE (NEGATIVE) mg/dL Urine Ketones 40 H (NEGATIVE) mg/dL Urine Occult Blood NEGATIVE (NEGATIVE) Urine Nitrite NEGATIVE (NEGATIVE) Urine Bilirubin NEGATIVE (NEGATIVE) Urine Urobilinogen 0.2 (<2.0) EU/dL Ur Leukocyte Esterase NEGATIVE (NEGATIVE) Meds: Medications Generic Name Dose Route Start Last Admin Trade Name Freq PRN Reason Stop Dose Admin Sodium Chloride 1,000 mls @ 125 mls/hr 01/18/19 14:11 01/18/19 14:22 Normal Saline IV 01/18/19 22:10 125 mls/hr STAT ONE Administration Discontinued Medications Generic Name Dose Route Start Last Admin Trade Name Freq PRN Reason Stop Dose Admin Ketorolac Tromethamine 30 mg 01/18/19 14:54 01/18/19 15:12 Toradol IVPUSH 01/18/19 14:55 30 mg ONETIME ONE Administration Departure - Departure Time of Disposition: 16:15 Disposition: Refer to Observation Clinical Impression: Near syncope, Dizziness Headache Qualifiers: Headache type: unspecified Headache chronicity pattern: acute headache Intractability: not intractable Qualified Code(s): R51 - Headache - Discharge Information Referrals: PCP,Unknown [Primary Care Provider] - Forms: ED Department Discharge - My Orders Last 24 Hours: My Active Orders 01/18/19 14:11 EKG Documentation Completion [RC] STAT Orthostatic Vital Signs [RC] ASDIRECTED Sodium Chloride 0.9% [Normal Saline] 1,000 ml IV STAT 01/18/19 15:50 Admission Status [Patient Status] [ADT] Stat - Assessment/Plan Last 24 Hours: My Active Orders 01/18/19 14:11 EKG Documentation Completion [RC] STAT Orthostatic Vital Signs [RC] ASDIRECTED Sodium Chloride 0.9% [Normal Saline] 1,000 ml IV STAT 01/18/19 15:50 Admission Status [Patient Status] [ADT] Stat
--- NOTE | 2019-01-18 15:44 | CT ---
INDICATION: Near syncope. Dizziness. Weakness TECHNIQUE: CT head without contrast. COMPARISON: None available FINDINGS: There is mild age-related cortical atrophy. The ventricles are within normal limits for the patient`s age. There is no mass effect or midline shift. There is no loss of andujar-white differentiation. A small periventricular white matter hypodensity in the left griffin radiata is of unclear chronicity. There is no evidence of an acute intracranial hemorrhage. No acute calvarial fracture is seen. The visualized paranasal sinuses and mastoid air cells are clear. The visualized orbits are within normal limits. IMPRESSION: No evidence of an acute intracranial hemorrhage, mass effect or loss of andujar-white differentiation. A small right periventricular white matter hypodensity could be related to mild chronic small vessel ischemic change, however, if there is clinical concern for an evolving lacunar infarct, follow-up and consider MRI evaluation. Dictated by Kvng Coleman MD @ 01/18/2019 3:38:26 PM Please note that all CT scans at this facility use dose modulation, iterative reconstruction, and/or weight-based dosing when appropriate to reduce radiation dose to as low as reasonably achievable. Dictated by: Kvng Coleman MD @ 01/18/2019 15:38:37 (Electronically Signed)
--- NOTE | 2019-01-18 17:33 | PCM.HP.2 ---
H&P History of Present Illness - General Date of Service: 01/18/19 Admit Problem/Dx: Admission Diagnosis/Problem Admission Diagnosis/Problem Near syncope Patient is a 83-year-old female presenting today with a dizziness accompanied with nausea. Patient states taking a 30 minute nap while sitting upright in her chair after which she woke up without standing up and noticed a "room spinning" sensation.patient denies any fevers, chills, body aches, chest pain, fainting or near fainting; does mention having similar episodes in the past however it has never had nausea accompanied with her dizziness. In the past while having dizziness episodes; patient would just "sleep it off";however on her way to the bedroom patient became increasingly dizzy and had vomited 2-3 times; vomit was nonbilious. Of note patient does mention having only eaten half a peach and 1 cup of coffee today. Denies any preceding symptoms including fever, chills, bodyaches,, recent head trauma, recent ear infection. She does mention that when she woke up from her chair she was not wearing her glasses. After daughter noticed her feeling dizzy recommended proceeding to the emergency department. ED course: on arrival patient became increasingly dizzy during orthostatic vital testing. Otherwise states that her symptoms of nausea and dizziness had improved substantially while laying still in bed. Denies any chest pain, shortness of breath, confusion, changes in mentation. She recently had right hip surgery however has not been on any pain medication including gabapentin and hydrocodone for 1 month. Patient has not used any new [id number] medication and cannot recall any dose adjustments to her daily medication. Past medical history includes dementia, hypertension. 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 Allergy Headache Uncoded 01/18/19 17:57 Home Medications: Home Meds Aspirin 81 mg PO DAILY 01/18/19 [History] Calcium Carbonate [Calcium] 500 mg PO DAILY 01/18/19 [History] Cyanocobalamin (Vitamin B-12) [B-12] 1,000 mcg PO ASDIRECTED 01/18/19 [History] Hydrocodone/Acetaminophen [Hydrocodon-Acetaminoph 7.5-325] 1 each PO Q6HR PRN [History] Krill Oil 350 mg PO ASDIRECTED 01/18/19 [History] Memantine HCl [Namenda] 5 mg PO DAILY 01/18/19 [History] amLODIPine [Norvasc] 5 mg PO DAILY 01/18/19 [History] Past Medical History HEENT History: Reports: Other (See Below) Other HEENT History: wears glasses, has top denture and lower partial Cardiovascular History: Reports: Hypertension Gastrointestinal History: Reports: GERD 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 History: 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: Musculoskeletal History: Reports: Arthritis, Back Pain, Chronic, Osteoarthritis Neurological History: Reports: Vertigo - Infectious Disease History Infectious Disease History: Reports: None - Past Surgical History Head Surgeries/Procedures: Reports: None HEENT Surgical History: Reports: Naso-Sinus Surgery GI Surgical History: Reports: Hernia, Inguinal Female Surgical History: Reports: Hysterectomy, Salpingo-Oophorectomy, Tubal Ligation Musculoskeletal Surgical History: Reports: Hip Replacement, Knee Replacement Social & Family History - Family History Family Medical History: Unobtainable - Tobacco Use Smoking Status *Q: Never Smoker - Caffeine Use Caffeine Use: Reports: Coffee - Recreational Drug Use Recreational Drug Use: No H&P Review of Systems - Review of Systems: Review Of Systems: See Below General: Denies: No Symptoms, Fever, Chills, Malaise HEENT: Reports: No Symptoms, Glasses, Vertigo. Denies: Ear Pain, Hearing Changes, Post Nasal Drip, Sinus Congestion, Sore Throat Pulmonary: Denies: Shortness of Breath, Wheezing, Cough Cardiovascular: Denies: Chest Pain, Palpitations, Edema, Lightheadedness, Syncope Gastrointestinal: Reports: Vomiting. Denies: Abdominal Pain, Constipation, Diarrhea 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: Denies: Dysuria, Frequency, Pain Musculoskeletal: Denies: Neck Pain, Shoulder Pain Psychiatric: Denies: Confusion, Depression Neurological: Reports: Dizziness, Gait Disturbance. Denies: Confusion, Headache , Numbness Exam - Exam Exam: See Below - Vital Signs Vital Signs: Last Vital Signs Temp 97.0 F 01/18/19 14:02 Pulse 69 01/18/19 15:15 Resp 12 01/18/19 15:15 BP 143/47 H 01/18/19 15:15 Pulse Ox 96 01/18/19 15:15 Orthostatic Blood Pressure [ 151/74 Standing] Orthostatic Blood Pressure [ 138/76 Sitting] Orthostatic Blood Pressure [ 153/64 Supine] Weight: 130 lb - Exam Quality Assessment: No: Supplemental Oxygen General: Alert, Oriented, Cooperative HEENT: Conjunctiva Clear, EOMI, Hearing Intact, Mucosa Moist & [place], Posterior Pharynx Clear, Pupils Reactive, TMs Clear. No: Glasses Neck: Supple, Trachea Midline Lungs: Clear to Auscultation, Normal Respiratory Effort Cardiovascular: Regular Rate, Regular Rhythm GI/Abdominal Exam: Normal Bowel Sounds, No Organomegaly, No Distention Extremities: Normal Inspection, Normal Range of Motion, Non-Tender, No Pedal Edema Skin: Warm, Dry, Intact Neurological: Cranial Nerves Intact, Reflexes Equal Bilateral Neuro Extensive - Mental Status: Alert, Oriented x3, Normal Mood/Affect Neuro Extensive - Motor, Sensory, Reflexes: CN II-XII Intact (pt. became unstable while standing for orthostatic vitals; ambualtion not attempted at this time. Slight drooping of right side of mouth, however rest of CN were inttact; sensation and strength 5/5 b/l ) - Patient Data Lab Results Last 24 hrs: Laboratory Results - last 24 hr 01/18/19 01/18/19 01/18/19 Range/Units 14:00 14:00 14:10 WBC 8.11 (4.0-11.0) K/uL RBC 4.68 (4.30-5.90) M/uL Hgb 14.5 (12.0-16.0) g/dL Hct 43.4 (36.0-46.0) % MCV 92.7 (80.0-98.0) fL MCH 31.0 (27.0-32.0) pg MCHC 33.4 (31.0-37.0) g/dL RDW Std Deviation 46.0 (28.0-62.0) fl RDW Coeff of Leonardo 14 (11.0-15.0) % Plt Count 204 (150-400) K/uL MPV 10.70 (7.40-12.00) fL Neut % (Auto) 73.3 (48.0-80.0) % Lymph % (Auto) 19.4 (16.0-40.0) % [place] % (Auto) 6.2 (0.0-15.0) % Eos % (Auto) 0.7 (0.0-7.0) % Baso % (Auto) 0.4 (0.0-1.5) % Neut # (Auto) 6.0 H (1.4-5.7) K/uL Lymph # (Auto) 1.6 (0.6-2.4) K/uL [place] # (Auto) 0.5 (0.0-0.8) K/uL Eos # (Auto) 0.1 (0.0-0.7) K/uL Baso # (Auto) 0.0 (0.0-0.1) K/uL Nucleated RBC % 0.0 /100WBC Nucleated RBCs # 0 K/uL Sodium 141 (136-145) mmol/L Potassium 3.9 (3.5-5.1) mmol/L Chloride 106 (98-107) mmol/L Carbon Dioxide 23.4 (21.0-32.0) mmol/L BUN 12 (7.0-18.0) mg/dL Creatinine 0.8 (0.6-1.0) mg/dL Est Cr Clr Drug Dosing 47.95 mL/min Estimated GFR (MDRD) > 60.0 ml/min Glucose 131 H (74-106) mg/dL Calcium 9.4 (8.5-10.1) mg/dL Total Bilirubin 0.6 (0.2-1.0) mg/dL AST 22 (15-37) IU/L ALT 15 (14-63) IU/L Alkaline Phosphatase 105 (46-116) U/L Troponin I < 0.050 (0.000-0.056) ng/mL Total Protein 6.4 (6.4-8.2) g/dL Albumin 3.7 (3.4-5.0) g/dL Globulin 2.7 (2.6-4.0) g/dL Albumin/Globulin Ratio 1.4 (0.9-1.6) Urine Color YELLOW Urine Appearance CLEAR Urine pH 8.0 (5.0-8.0) Ur Specific [place] 1.020 (1.001-1.035) Urine Protein NEGATIVE (NEGATIVE) mg/dL Urine Glucose (UA) NEGATIVE (NEGATIVE) mg/dL Urine Ketones 40 H (NEGATIVE) mg/dL Urine Occult Blood NEGATIVE (NEGATIVE) Urine Nitrite NEGATIVE (NEGATIVE) Urine Bilirubin NEGATIVE (NEGATIVE) Urine Urobilinogen 0.2 (<2.0) EU/dL Ur Leukocyte Esterase NEGATIVE (NEGATIVE) Result Diagrams: 01/19/19 05:45 01/19/19 05:45 EKG INTERPRETATION EKG Date: 01/18/19 Rhythm: NSR Problem List Initiated/Reviewed/Updated: Yes Orders Last 24hrs: Active Orders 24 hr Category Date Time Status Admission Status [Patient Status] [ADT] Stat ADT 01/18/19 15:50 Active EKG Documentation Completion [RC] STAT Care 01/18/19 14:11 Active Orthostatic Vital Signs [RC] ASDIRECTED Care 01/18/19 14:11 Active Telemetry Monitoring [Cardiac Monitoring] [RC] . Care 01/18/19 15:58 Active DIRECTED Consult to Physical Therapy [PT Evaluation and Cons 01/18/19 17:21 Ordered Treatment] [CONS] Routine Aspirin Med 01/19/19 09:00 Ordered 81 mg PO DAILY Memantine HCl [Namenda] Med 01/19/19 09:00 Ordered 5 mg PO DAILY Sodium Chloride 0.9% [Normal Saline] 1,000 ml Med 01/18/19 14:11 Active IV STAT amLODIPine [Norvasc] Med 01/19/19 09:00 Ordered 5 mg PO DAILY Medication Orders Amlodipine Besylate (Norvasc) 5 mg PO DAILY BRUNO Aspirin (Aspirin) 81 mg PO DAILY BRUNO Sodium Chloride (Normal Saline) 1,000 mls @ 125 mls/hr IV STAT ONE Stop: 01/18/19 22:10 Last Admin: 01/18/19 14:22 Dose: 125 mls/hr Non-Formulary Medication (Memantine Hcl [Namenda]) 5 mg PO DAILY BRUNO 1. vertigo versus disequilibrium versus nonspecific dizziness 2. Past medical history of dementia, hypertension Assessment/Plan Comment:: 1. admit for observation. Less than 2 midnights.Up with assistance. Diet: heart healthy diet. DVT prophylaxis :SCD. 2. Vertigo versus disequilibrium: telemetry, EKG ordered. Repeat orthostatics in a.m. continue home medications. Physical therapy/occupational therapy ordered for possible Edda's/Sam- Hallpike maneuver. consider meclizine treatment after physical therapy evaluation. 3. Repeat chemistry in a.m.
[2019-01-19 06:44] LABS: CHLORIDE,CL 110 mmol/L (98-107); SODIUM,NA 144 mmol/L (136-145)
[2019-01-19 08:26] VITALS: BP 132/60
--- NOTE | 2019-01-19 08:28 | PCM.DCSUM1 ---
<Jerica Manning - Last Filed: 01/19/19 10:05> Discharge Summary - Hospital Course Free Text/Narrative:: Discharge summary Admission date January 18, 2019 Discharge date January 19 2019 Admission diagnoses: Vertigo versus disequilibrium Discharge diagnoses: Vertigo versus disequilibrium resolved Past medical history: Hypertension Consultations: None Procedures: None Hospital course: Patient is a 8-year-old female with a past medical history of hypertension presenting yesterday with acute vertiginous episode around noon; states room spinning sensation was worsened with head movement and while standing however does not endorse any presyncopal type symptoms. Vertigo was accompanied with 2- 3 episodes of nonbilious vomiting; patient was brought in by family due to concerns for new symptoms of nausea. Patient has had multiple vertiginous episodes in the past however never with the nausea. On arrival orthostatic vitals were within normal limits patient became increasingly vertiginous during standing portion of orthostatics however EKG and labs were reassuring. Following day physical therapy evaluated patient; [place]-Hallpike maneuver performed. Patient however used bathroom facilities multiple times overnight without any dizzy episodes. Discharge condition: Stable Disposition: Home Discharge medications: Meclizine Discharge instructions: Patient advised to follow-up with PCP in one week. Advised to contact provider if symptoms of fever, chills, bodies, chest pain, shortness of breath or increasing vertiginous episodes. Follow-up: PCP within one week - Discharge Data Discharge Date: 01/19/19 Discharge Disposition: Home, Self-Care 01 Condition: Fair - Patient Summary/Data Consults: Consultations 01/18/19 17:21 Consult to Physical Therapy [PT Evaluation and Treatment] [CONS] Routine - Patient Instructions Diet: Heart Healthy Diet Driving: Do Not Drive Showering/Bathing: May Shower Notify Provider of: Fever, Increased Pain, Swelling and Redness, Drainage, Nausea and/or Vomiting Other/Special Instructions: Contact [facility] if symptoms of chest pain, shortness of breath, fever or new symptoms of dizziness occur - Discharge Plan *PRESCRIPTION DRUG MONITORING PROGRAM REVIEWED*: No *COPY OF PRESCRIPTION DRUG MONITORING REPORT IN PATIENT PATRIC: No Prescriptions/Med Rec: Meclizine HCl 25 mg PO DAILY PRN 3 Days #6 tablet PRN Reason: Dizziness Home Medications: Home Meds Aspirin 81 mg PO DAILY 01/18/19 [History] Calcium Carbonate [Calcium] 500 mg PO DAILY 01/18/19 [History] Cyanocobalamin (Vitamin B-12) [B-12] 1,000 mcg PO ASDIRECTED 01/18/19 [History] Hydrocodone/Acetaminophen [Hydrocodon-Acetaminoph 7.5-325] 1 each PO Q6HR PRN [History] Krill Oil 350 mg PO ASDIRECTED 01/18/19 [History] Memantine HCl [Namenda] 5 mg PO DAILY 01/18/19 [History] amLODIPine [Norvasc] 5 mg PO DAILY 01/18/19 [History] Meclizine HCl 25 mg PO DAILY PRN 3 Days #6 tablet 01/19/19 [Rx] Patient Handouts: Meclizine tablets or capsules, Near-Syncope, [id number] Referrals: Jose Watkins MD [Physician] - 02/02/19 10:00 am - Discharge Summary/Plan Comment DC Time >30 min.: No - Patient Data Vitals - Most Recent: Last Vital Signs Temp 98.1 F 01/19/19 07:42 Pulse 73 01/19/19 07:42 Resp 18 01/19/19 07:42 BP 152/56 H 01/19/19 07:42 Pulse Ox 97 01/19/19 07:42 Orthostatic Blood Pressure [ 132/60 Standing] Orthostatic Blood Pressure [ 133/51 Sitting] Orthostatic Blood Pressure [ 126/54 Supine] Weight - Most Recent: 58.967 kg I&O - Last 24 hours: Intake & Output 01/18/19 01/19/19 01/19/19 22:59 06:59 14:59 Intake Total 75 Output Total 550 Balance -475 Lab Results - Last 24 hrs: Laboratory Results - last 24 hr 01/18/19 01/18/19 01/18/19 Range/Units 14:00 14:00 14:10 WBC 8.11 (4.0-11.0) K/uL RBC 4.68 (4.30-5.90) M/uL Hgb 14.5 (12.0-16.0) g/dL Hct 43.4 (36.0-46.0) % MCV 92.7 (80.0-98.0) fL MCH 31.0 (27.0-32.0) pg MCHC 33.4 (31.0-37.0) g/dL RDW Std Deviation 46.0 (28.0-62.0) fl RDW Coeff of Leonardo 14 (11.0-15.0) % Plt Count 204 (150-400) K/uL MPV 10.70 (7.40-12.00) fL Neut % (Auto) 73.3 (48.0-80.0) % Lymph % (Auto) 19.4 (16.0-40.0) % Miller % (Auto) 6.2 (0.0-15.0) % Eos % (Auto) 0.7 (0.0-7.0) % Baso % (Auto) 0.4 (0.0-1.5) % Neut # (Auto) 6.0 H (1.4-5.7) K/uL Lymph # (Auto) 1.6 (0.6-2.4) K/uL Miller # (Auto) 0.5 (0.0-0.8) K/uL Eos # (Auto) 0.1 (0.0-0.7) K/uL Baso # (Auto) 0.0 (0.0-0.1) K/uL Nucleated RBC % 0.0 /100WBC Nucleated RBCs # 0 K/uL Sodium 141 (136-145) mmol/L Potassium 3.9 (3.5-5.1) mmol/L Chloride 106 (98-107) mmol/L Carbon Dioxide 23.4 (21.0-32.0) mmol/L BUN 12 (7.0-18.0) mg/dL Creatinine 0.8 (0.6-1.0) mg/dL Est Cr Clr Drug Dosing 47.95 mL/min Estimated GFR (MDRD) > 60.0 ml/min Glucose 131 H (74-106) mg/dL Calcium 9.4 (8.5-10.1) mg/dL Total Bilirubin 0.6 (0.2-1.0) mg/dL AST 22 (15-37) IU/L ALT 15 (14-63) IU/L Alkaline Phosphatase 105 (46-116) U/L Troponin I < 0.050 (0.000-0.056) ng/mL Total Protein 6.4 (6.4-8.2) g/dL Albumin 3.7 (3.4-5.0) g/dL Globulin 2.7 (2.6-4.0) g/dL Albumin/Globulin Ratio 1.4 (0.9-1.6) Urine Color YELLOW Urine Appearance CLEAR Urine pH 8.0 (5.0-8.0) Ur Specific [place] 1.020 (1.001-1.035) Urine Protein NEGATIVE (NEGATIVE) mg/dL Urine Glucose (UA) NEGATIVE (NEGATIVE) mg/dL Urine Ketones 40 H (NEGATIVE) mg/dL Urine Occult Blood NEGATIVE (NEGATIVE) Urine Nitrite NEGATIVE (NEGATIVE) Urine Bilirubin NEGATIVE (NEGATIVE) Urine Urobilinogen 0.2 (<2.0) EU/dL Ur Leukocyte Esterase NEGATIVE (NEGATIVE) 01/19/19 01/19/19 Range/Units 05:45 05:45 WBC 6.93 (4.0-11.0) K/uL RBC 4.23 L (4.30-5.90) M/uL Hgb 12.9 (12.0-16.0) g/dL Hct 39.5 (36.0-46.0) % MCV 93.4 (80.0-98.0) fL MCH 30.5 (27.0-32.0) pg MCHC 32.7 (31.0-37.0) g/dL RDW Std Deviation 47.4 (28.0-62.0) fl RDW Coeff of Leonardo 14 (11.0-15.0) % Plt Count 211 (150-400) K/uL MPV 10.50 (7.40-12.00) fL Neut % (Auto) 47.4 L (48.0-80.0) % Lymph % (Auto) 39.5 (16.0-40.0) % Miller % (Auto) 11.0 (0.0-15.0) % Eos % (Auto) 1.7 (0.0-7.0) % Baso % (Auto) 0.4 (0.0-1.5) % Neut # (Auto) 3.3 (1.4-5.7) K/uL Lymph # (Auto) 2.7 H (0.6-2.4) K/uL Miller # (Auto) 0.8 (0.0-0.8) K/uL Eos # (Auto) 0.1 (0.0-0.7) K/uL Baso # (Auto) 0.0 (0.0-0.1) K/uL Nucleated RBC % 0.0 /100WBC Nucleated RBCs # 0 K/uL Sodium 144 (136-145) mmol/L Potassium 3.5 (3.5-5.1) mmol/L Chloride 110 H (98-107) mmol/L Carbon Dioxide 26.6 (21.0-32.0) mmol/L BUN 14 (7.0-18.0) mg/dL Creatinine 0.8 (0.6-1.0) mg/dL Est Cr Clr Drug Dosing 44.08 mL/min Estimated GFR (MDRD) > 60.0 ml/min Glucose 89 (74-106) mg/dL Calcium 8.9 (8.5-10.1) mg/dL Total Bilirubin 0.6 (0.2-1.0) mg/dL AST 15 (15-37) IU/L ALT 14 (14-63) IU/L Alkaline Phosphatase 83 (46-116) U/L Troponin I (0.000-0.056) ng/mL Total Protein 5.4 L (6.4-8.2) g/dL Albumin 3.1 L (3.4-5.0) g/dL Globulin 2.3 L (2.6-4.0) g/dL Albumin/Globulin Ratio 1.4 (0.9-1.6) Urine Color Urine Appearance Urine pH (5.0-8.0) Ur Specific [place] (1.001-1.035) Urine Protein (NEGATIVE) mg/dL Urine Glucose (UA) (NEGATIVE) mg/dL Urine Ketones (NEGATIVE) mg/dL Urine Occult Blood (NEGATIVE) Urine Nitrite (NEGATIVE) Urine Bilirubin (NEGATIVE) Urine Urobilinogen (<2.0) EU/dL Ur Leukocyte Esterase (NEGATIVE) Med Orders - Current: Current Medications Amlodipine Besylate (Norvasc) 5 mg PO DAILY [facility] Aspirin (Aspirin) 81 mg PO DAILY [facility] Memantine (Namenda) 5 mg PO DAILY [facility] Discontinued Medications Sodium Chloride (Normal Saline) 1,000 mls @ 125 mls/hr IV STAT ONE Stop: 01/18/19 22:10 Last Admin: 01/18/19 14:22 Dose: 125 mls/hr Ketorolac Tromethamine (Toradol) 30 mg IVPUSH ONETIME ONE Stop: 01/18/19 14:55 Last Admin: 01/18/19 15:12 Dose: 30 mg <Axel Randhawa - Last Filed: 01/20/19 10:50> Discharge Summary - Patient Summary/Data Consults: Consultations 01/18/19 17:21 Consult to Physical Therapy [PT Evaluation and Treatment] [CONS] Routine - Patient Data Vitals - Most Recent: Last Vital Signs Temp 36.7 C 01/19/19 07:42 Pulse 73 01/19/19 07:42 Resp 18 01/19/19 07:42 BP 132/60 01/19/19 08:24 Pulse Ox 97 01/19/19 07:42 Orthostatic Blood Pressure [ 132/60 Standing] Orthostatic Blood Pressure [ 133/51 Sitting] Orthostatic Blood Pressure [ 126/54 Supine] Med Orders - Current: Current Medications Discontinued Medications Amlodipine Besylate (Norvasc) 5 mg PO DAILY [facility] Last Admin: 01/19/19 08:24 Dose: 5 mg Aspirin (Aspirin) 81 mg PO DAILY [facility] Last Admin: 01/19/19 08:24 Dose: 81 mg Sodium Chloride (Normal Saline) 1,000 mls @ 125 mls/hr IV STAT ONE Stop: 01/18/19 22:10 Last Admin: 01/18/19 14:22 Dose: 125 mls/hr Ketorolac Tromethamine (Toradol) 30 mg IVPUSH ONETIME ONE Stop: 01/18/19 14:55 Last Admin: 01/18/19 15:12 Dose: 30 mg Memantine (Namenda) 5 mg PO DAILY [facility] Last Admin: 01/19/19 08:25 Dose: 5 mg - Free Text/Narrative Note: I have evaluated the patient. I have discussed findings and treatment plan with resident. I agree with the assessment and plan outlined in the following note.
[2019-01-19] MEDS ORDERED: amLODIPine 5 MG Tab PO SCH (09:00)
[2019-01-19] MEDS ORDERED: Memantine 10 MG Tab PO SCH (09:00)
[2019-01-19] MEDS ORDERED: Aspirin 81 MG Tab.Chew PO SCH (09:00)
== END 2019-01-19 11:10 | disposition home or self-care (01) ==
LOC: MW.ED 14:01 → MW.MS 16:00
PROVIDERS: ADMIT Internal Medicine; ATTEND Internal Medicine
DX: R55 Syncope and collapse (principal); I10 Essential (primary) hypertension; R11.2 Nausea with vomiting, unspecified; K21.9 Gastro-esophageal reflux disease without esophagitis; M19.90 Unspecified osteoarthritis, unspecified site; F03.90 Unspecified dementia, unspecified severity, without behavioral disturbance, psychotic disturbance, mood disturbance, and anxiety; Z79.82 Long term (current) use of aspirin; Z79.899 Other long term (current) drug therapy; Z91.048 Other nonmedicinal substance allergy status
CPT/HCPCS: 36415; 70450; 80053; 81003; 84484; 85025; 93005; 96361; 96374; 97161; 99285; A9270; J1885; J7040; 99284; G0378

== ENCOUNTER 2023-06-19 00:55 | Emergency (ER) | payer MEDICARE, BC ==
[2023-06-19] MEDS ORDERED: Sodium Chloride 0.9% 2.5 ML Syringe FLUSH PRN (01:14)
[2023-06-19] MEDS ORDERED: Sodium Chloride 0.9% 10 ML Syringe FLUSH PRN (01:14)
[2023-06-19 01:24] LABS: BASOPHILS ABSOLUTE AUTO 0.07 K/uL (0.00-0.20); BASOPHILS PERCENT AUTO 0.5 % (0.0-1.0); EOSINOPHILS ABSOLUTE AUTO 0.02 K/uL (0.00-0.45); EOSINOPHILS PERCENT AUTO 0.1 % (0.0-6.0); HEMATOCRIT 45.7 % (37.0-47.0); HEMOGLOBIN 15.7 g/dL (12.0-16.0); IMMATURE GRAN ABSOLUTE AUTO 0.04 K/uL (0.00-0.05); IMMATURE GRAN PERCENT AUTO 0.3 % (0.0-0.4); LYMPHOCYTES ABSOLUTE AUTO 1.46 K/uL (1.00-4.80); LYMPHOCYTES PERCENT AUTO 10.5 % (24.0-44.0); MEAN CORPUSCULAR HEMOGLOBIN 31.5 pg (28.0-32.0); MEAN CORPUSCULAR HGB CONC 34.4 g/dL (32.0-36.0); MEAN CORPUSCULAR VOLUME 91.6 fL (83.0-99.0); MEAN PLATELET VOLUME 10.3 fL (9.4-12.3); MONOCYTES ABSOLUTE AUTO 0.69 K/uL (0.00-0.80); MONOCYTES PERCENT AUTO 4.9 % (0.0-8.0); NEUTROPHILS ABSOLUTE AUTO 11.66 K/uL (1.80-7.70); NEUTROPHILS PERCENT AUTO 83.7 % (41.0-71.0); PLATELET COUNT,PLT 270 K/uL (150-400); RED BLOOD CELL COUNT 4.99 M/uL (4.10-5.30); WHITE BLOOD CELL COUNT,WBC 13.94 K/uL (3.9-11.3)
[2023-06-19 01:51] LABS: A/G RATIO 1.3 (0.9-1.6); ALBUMIN 3.8 g/dL (3.4-5.0); BILIRUBIN TOTAL 0.6 mg/dL (0.2-1.0); CALCIUM 9.4 mg/dL (8.5-10.1); CARBON DIOXIDE,CO2 26.3 mmol/L (21.0-32.0); CREATININE 1.1 mg/dL (0.6-1.0); EST CRCL DRUG DOSING (CG) 31.11 mL/min; POTASSIUM,K 3.7 mmol/L (3.5-5.1); PROTEIN TOTAL,TP 6.8 g/dL (6.4-8.2)
[2023-06-19 02:21] LABS: APPEARANCE,URINE CLOUDY; BILIRUBIN,URINE NEGATIVE (NEGATIVE); COLOR,URINE YELLOW; GLUCOSE,URINE NEGATIVE (NEGATIVE); KETONES,URINE >=80 mg/dL (NEGATIVE); LEUKOCYTE ESTERASE,URINE SMALL (NEGATIVE); NITRITE,URINE NEGATIVE (NEGATIVE); OCCULT BLOOD,URINE NEGATIVE (NEGATIVE); PROTEIN,URINE TRACE mg/dL (NEGATIVE); UROBILINOGEN,URINE 0.2 EU/dL (<2.0)
[2023-06-19 02:31] LABS: AMORPHOUS SEDIMENT,URINE MODERATE (NEGATIVE); BACTERIA,URINE 2+ (NEGATIVE); EPITHELIAL CELLS,URINE FEW (NONE-FEW); MUCUS,URINE LIGHT (NONE-MOD); RBC,URINE 0-2 (0-2/HPF)
[2023-06-19] MEDS ORDERED: Iopamidol 755 MG/ML 500 ML Multipack Bottle IVPUSH STA (03:19)
[2023-06-19] MEDS ORDERED: Cephalexin 500 MG Cap PO ONE (04:36)
[2023-06-19 05:16] VITALS: BP 157/87; PULSE 77
== END 2023-06-19 05:01 | disposition home or self-care (01) ==
LOC: MW.ED 00:55
DX: N39.0 Urinary tract infection, site not specified (principal); I10 Essential (primary) hypertension; K21.9 Gastro-esophageal reflux disease without esophagitis; Z79.82 Long term (current) use of aspirin; Z79.899 Other long term (current) drug therapy; Z91.048 Other nonmedicinal substance allergy status
CPT/HCPCS: 36415; 74177; 80053; 81001; 83690; 84484; 85025; 93005; 99284; A9270; J3490; Q9967; 93010

== ENCOUNTER 2024-03-18 21:44 | Observation (INO) | payer MEDICARE, BC ==
[2024-03-18 22:23] LABS: BASOPHILS ABSOLUTE AUTO 0.05 K/uL (0.00-0.20); BASOPHILS PERCENT AUTO 0.6 % (0.0-1.0); EOSINOPHILS ABSOLUTE AUTO 0.15 K/uL (0.00-0.45); EOSINOPHILS PERCENT AUTO 1.7 % (0.0-6.0); HEMATOCRIT 41.8 % (37.0-47.0); HEMOGLOBIN 14.3 g/dL (12.0-16.0); IMMATURE GRAN ABSOLUTE AUTO 0.02 K/uL (0.00-0.05); IMMATURE GRAN PERCENT AUTO 0.2 % (0.0-0.4); LYMPHOCYTES ABSOLUTE AUTO 2.15 K/uL (1.00-4.80); LYMPHOCYTES PERCENT AUTO 24.4 % (24.0-44.0); MEAN CORPUSCULAR HEMOGLOBIN 31.4 pg (28.0-32.0); MEAN CORPUSCULAR HGB CONC 34.2 g/dL (32.0-36.0); MEAN CORPUSCULAR VOLUME 91.7 fL (83.0-99.0); MEAN PLATELET VOLUME 10.1 fL (9.4-12.3); MONOCYTES ABSOLUTE AUTO 0.86 K/uL (0.00-0.80); MONOCYTES PERCENT AUTO 9.8 % (0.0-8.0); NEUTROPHILS ABSOLUTE AUTO 5.57 K/uL (1.80-7.70); NEUTROPHILS PERCENT AUTO 63.3 % (41.0-71.0); PLATELET COUNT,PLT 219 K/uL (150-400); RED BLOOD CELL COUNT 4.56 M/uL (4.10-5.30)
[2024-03-18 22:52] LABS: APPEARANCE,URINE SLT CLOUDY; BILIRUBIN,URINE NEGATIVE (NEGATIVE); COLOR,URINE YELLOW; GLUCOSE,URINE NEGATIVE (NEGATIVE); KETONES,URINE NEGATIVE (NEGATIVE); LEUKOCYTE ESTERASE,URINE MODERATE (NEGATIVE); NITRITE,URINE POSITIVE (NEGATIVE); OCCULT BLOOD,URINE NEGATIVE (NEGATIVE); PH,URINE 7.5 (5.0-8.0); PROTEIN,URINE NEGATIVE (NEGATIVE); UROBILINOGEN,URINE 0.2 EU/dL (<2.0)
[2024-03-18 22:56] LABS: A/G RATIO 1.2 (0.9-1.6); ALBUMIN 3.4 g/dL (3.4-5.0); BILIRUBIN TOTAL 0.3 mg/dL (0.2-1.0); CALCIUM 9.5 mg/dL (8.5-10.1); EST CRCL DRUG DOSING (CG) 33.58 mL/min; MAGNESIUM 1.9 mg/dL (1.8-2.4); POTASSIUM,K 3.7 mmol/L (3.5-5.1); PROTEIN TOTAL,TP 6.3 g/dL (6.4-8.2)
[2024-03-18 22:56] LABS: BACTERIA,URINE 4+ (NEGATIVE); EPITHELIAL CELLS,URINE RARE (NONE-FEW)
[2024-03-18] MEDS: Iopamidol 755 MG/ML 500 ML Multipack Bottle IVPUSH ONE (23:38)
[2024-03-19] MEDS: cefTRIAXone 1 GM in Sodium Chloride 0.9% 50 ML IV ONE (00:06)
[2024-03-19] MEDS: Sodium Chloride 0.9% 10 ML Syringe FLUSH PRN (00:06)
[2024-03-19] MEDS: Sodium Chloride 0.9% 2.5 ML Syringe FLUSH PRN (00:06)
[2024-03-19 06:54] LABS: BASOPHILS ABSOLUTE AUTO 0.06 K/uL (0.00-0.20); BASOPHILS PERCENT AUTO 0.7 % (0.0-1.0); EOSINOPHILS ABSOLUTE AUTO 0.29 K/uL (0.00-0.45); EOSINOPHILS PERCENT AUTO 3.2 % (0.0-6.0); HEMATOCRIT 40.9 % (37.0-47.0); HEMOGLOBIN 13.9 g/dL (12.0-16.0); IMMATURE GRAN ABSOLUTE AUTO 0.02 K/uL (0.00-0.05); IMMATURE GRAN PERCENT AUTO 0.2 % (0.0-0.4); LYMPHOCYTES ABSOLUTE AUTO 3.07 K/uL (1.00-4.80); MEAN CORPUSCULAR HEMOGLOBIN 31.2 pg (28.0-32.0); MEAN CORPUSCULAR VOLUME 91.9 fL (83.0-99.0); MEAN PLATELET VOLUME 9.7 fL (9.4-12.3); MONOCYTES ABSOLUTE AUTO 0.88 K/uL (0.00-0.80); MONOCYTES PERCENT AUTO 9.8 % (0.0-8.0); NEUTROPHILS PERCENT AUTO 52.1 % (41.0-71.0); PLATELET COUNT,PLT 212 K/uL (150-400); RED BLOOD CELL COUNT 4.45 M/uL (4.10-5.30); WHITE BLOOD CELL COUNT,WBC 9.02 K/uL (3.9-11.3)
[2024-03-19 07:11] LABS: CARBON DIOXIDE,CO2 30.4 mmol/L (21.0-32.0); EST CRCL DRUG DOSING (CG) 33.58 mL/min; POTASSIUM,K 3.5 mmol/L (3.5-5.1)
[2024-03-19] MEDS: amLODIPine 5 MG Tab PO SCH (15:29)
[2024-03-19] MEDS: cefTRIAXone 1 GM in Sodium Chloride 0.9% 50 ML IV SCH (22:46)
[2024-03-20 07:42] LABS: BASOPHILS ABSOLUTE AUTO 0.06 K/uL (0.00-0.20); BASOPHILS PERCENT AUTO 0.8 % (0.0-1.0); HEMATOCRIT 37.8 % (37.0-47.0); HEMOGLOBIN 12.8 g/dL (12.0-16.0); IMMATURE GRAN ABSOLUTE AUTO 0.02 K/uL (0.00-0.05); IMMATURE GRAN PERCENT AUTO 0.3 % (0.0-0.4); LYMPHOCYTES ABSOLUTE AUTO 2.69 K/uL (1.00-4.80); LYMPHOCYTES PERCENT AUTO 36.2 % (24.0-44.0); MEAN CORPUSCULAR HEMOGLOBIN 31.3 pg (28.0-32.0); MEAN CORPUSCULAR HGB CONC 33.9 g/dL (32.0-36.0); MEAN CORPUSCULAR VOLUME 92.4 fL (83.0-99.0); MEAN PLATELET VOLUME 10.1 fL (9.4-12.3); MONOCYTES ABSOLUTE AUTO 0.76 K/uL (0.00-0.80); MONOCYTES PERCENT AUTO 10.2 % (0.0-8.0); NEUTROPHILS PERCENT AUTO 48.5 % (41.0-71.0); PLATELET COUNT,PLT 202 K/uL (150-400); RED BLOOD CELL COUNT 4.09 M/uL (4.10-5.30); WHITE BLOOD CELL COUNT,WBC 7.43 K/uL (3.9-11.3)
[2024-03-20 08:04] LABS: CALCIUM 8.1 mg/dL (8.5-10.1); EST CRCL DRUG DOSING (CG) 33.58 mL/min; POTASSIUM,K 3.5 mmol/L (3.5-5.1)
[2024-03-20 14:10] VITALS: BP 120/58; PULSE 77
== END 2024-03-20 14:35 | disposition home or self-care (01) ==
LOC: MW.ED 21:44 → MW.MS 03-19 01:16
PROVIDERS: ADMIT Internal Medicine; ATTEND Internal Medicine
DX: N30.00 Acute cystitis without hematuria (principal)
CPT/HCPCS: 36415; 70450; 70496; 70498; 71045; 72125; 80048; 80053; 81001; 83735; 84484; 85025; 87086; 93005; 97162; A9270; J0696; J3490; Q9967; 87088; 87186; 93010; 96365; 96366; 99285; 99285-25; G0378

== ENCOUNTER 2025-05-04 20:04 | Observation (INO) | payer MEDICARE, BC ==
[2025-05-04 20:55] LABS: BASOPHILS ABSOLUTE AUTO 0.02 K/uL (0.00-0.20); BASOPHILS PERCENT AUTO 0.3 % (0.0-1.0); EOSINOPHILS ABSOLUTE AUTO 0.01 K/uL (0.00-0.45); EOSINOPHILS PERCENT AUTO 0.2 % (0.0-6.0); IMMATURE GRAN ABSOLUTE AUTO 0.02 K/uL (0.00-0.05); IMMATURE GRAN PERCENT AUTO 0.3 % (0.0-0.4); LYMPHOCYTES ABSOLUTE AUTO 1.22 K/uL (1.00-4.80); LYMPHOCYTES PERCENT AUTO 18.7 % (24.0-44.0); MEAN PLATELET VOLUME 9.9 fL (9.4-12.3); MONOCYTES ABSOLUTE AUTO 0.98 K/uL (0.00-0.80); MONOCYTES PERCENT AUTO 15.0 % (0.0-8.0); NEUTROPHILS ABSOLUTE AUTO 4.29 K/uL (1.80-7.70); NEUTROPHILS PERCENT AUTO 65.5 % (41.0-71.0); NRBC ABSOLUTE 0.00 K/uL (0.00-0.02); NRBC PERCENT 0.0 /100WBC (0.0-0.2); PLATELET COUNT,PLT 208 K/uL (150-400); RED BLOOD CELL COUNT 4.74 M/uL (4.10-5.30); WHITE BLOOD CELL COUNT,WBC 6.54 K/uL (3.9-11.3)
[2025-05-04 21:24] LABS: LACTIC ACID 1.1 mmol/L (0.4-2.0)
[2025-05-04 21:27] LABS: A/G RATIO 1.3 (0.9-1.6); ALANINE AMINOTRANSFERASE,ALT 17.0 IU/L (14-63); ASPARTATE AMNIOTRANSFERASE,AST 25.0 IU/L (15-37); BILIRUBIN TOTAL 0.6 mg/dL (0.2-1.0); BLOOD UREA NITROGEN,BUN 11.0 mg/dL (7.0-18.0); CARBON DIOXIDE,CO2 27.1 mmol/L (21.0-32.0); CHLORIDE,CL 101.0 mmol/L (98-107); CREATININE 1.1 mg/dL (0.6-1.0); EST CRCL DRUG DOSING (CG) 29.94 mL/min; ESTIMATED GFR 48.0 mL/min (>60); GLUCOSE RANDOM 105.0 mg/dL (74-106); POTASSIUM,K 3.4 mmol/L (3.5-5.1); PROTEIN TOTAL,TP 6.5 g/dL (6.4-8.2); SODIUM,NA 139.0 mmol/L (136-145); TSH ULTRASENSITIVE 1.07 uIU/mL (0.36-3.74)
[2025-05-04 22:09] LABS: GLUCOSE,URINE NEGATIVE (NEGATIVE); OCCULT BLOOD,URINE SMALL (NEGATIVE)
[2025-05-04 22:14] LABS: APPEARANCE,URINE HAZY
[2025-05-04 22:24] LABS: EPITHELIAL CELLS,URINE OCCASIONAL (NONE-FEW)
[2025-05-04] MEDS: Nirmatrelvir/Ritonavir 150 MG/100 MG Dose Pack (Renal Dose) PO SCH (23:03)
[2025-05-05] MEDS ORDERED: Ondansetron 4 MG/2 ML SDV IVPUSH PRN (00:44)
[2025-05-05 06:01] LABS: BASOPHILS ABSOLUTE AUTO 0.04 K/uL (0.00-0.20); BASOPHILS PERCENT AUTO 0.6 % (0.0-1.0); EOSINOPHILS ABSOLUTE AUTO 0.02 K/uL (0.00-0.45); EOSINOPHILS PERCENT AUTO 0.3 % (0.0-6.0); IMMATURE GRAN ABSOLUTE AUTO 0.03 K/uL (0.00-0.05); IMMATURE GRAN PERCENT AUTO 0.4 % (0.0-0.4); LYMPHOCYTES ABSOLUTE AUTO 1.30 K/uL (1.00-4.80); LYMPHOCYTES PERCENT AUTO 18.9 % (24.0-44.0); MEAN PLATELET VOLUME 10.1 fL (9.4-12.3); MONOCYTES ABSOLUTE AUTO 1.06 K/uL (0.00-0.80); MONOCYTES PERCENT AUTO 15.4 % (0.0-8.0); NEUTROPHILS ABSOLUTE AUTO 4.42 K/uL (1.80-7.70); NEUTROPHILS PERCENT AUTO 64.4 % (41.0-71.0); NRBC ABSOLUTE 0.00 K/uL (0.00-0.02); NRBC PERCENT 0.0 /100WBC (0.0-0.2); PLATELET COUNT,PLT 172 K/uL (150-400); RED BLOOD CELL COUNT 4.77 M/uL (4.10-5.30); WHITE BLOOD CELL COUNT,WBC 6.87 K/uL (3.9-11.3)
[2025-05-05 06:20] LABS: BLOOD UREA NITROGEN,BUN 12.0 mg/dL (7.0-18.0); CARBON DIOXIDE,CO2 30.0 mmol/L (21.0-32.0); CHLORIDE,CL 103.0 mmol/L (98-107); CREATININE 1.1 mg/dL (0.6-1.0); EST CRCL DRUG DOSING (CG) 29.94 mL/min; GLUCOSE RANDOM 83.0 mg/dL (74-106); POTASSIUM,K 3.3 mmol/L (3.5-5.1); SODIUM,NA 140.0 mmol/L (136-145)
[2025-05-05 06:22] LABS: ESTIMATED GFR 48.0 mL/min (>60)
[2025-05-05] MEDS: Potassium Chloride 20 MEQ Tab.ER PO ONE (08:30)
[2025-05-05] MEDS ORDERED: MEMANTINE HCL 5 MG PO SCH ×2 (09:00→11:30)
[2025-05-05 11:06] VITALS: BP 111/58; PULSE 67
[2025-05-05] MEDS: Nirmatrelvir/Ritonavir 150 MG/100 MG Dose Pack (Renal Dose) PO SCH (11:16)
== END 2025-05-05 11:30 | disposition home or self-care (01) ==
LOC: MW.ED 20:04 → MW.MS 22:35 → UNDODISOB 05-05 11:30
PROVIDERS: ADMIT Internal Medicine; ATTEND Internal Medicine
DX: U07.1 COVID-19 (principal); I10 Essential (primary) hypertension; E78.00 Pure hypercholesterolemia, unspecified; Z91.09 Other allergy status, other than to drugs and biological substances; Z79.899 Other long term (current) drug therapy
CPT/HCPCS: 36415; 51702; 70450; 71045; 80048; 80053; 81001; 83605; 83690; 84443; 84484; 85025; 87040; 87428; 93005; 99285; A9270; 93010; 99221; G0378